=== PATIENT | male | born 1985 | race Caucasian/White ===

== ENCOUNTER 2021-04-07 12:41 | Outpatient (CLI) | payer OTHER ==
--- NOTE | 2021-04-07 13:41 | SLEEP CARE CONSULTATION ---
Information from patient questionnaire entered by Donna Mcgrath. I have reviewed and concur with the information entered by Donna Mcgrath. This document represents the service I personally performed and the decisions made by me, Brooke Hernandez ARNP. History of Present Illness Service Date and Time: 04/07/2021 1241 Reason for Visit: New patient Chief Complaint: reports: Unrefreshed sleep, Snoring, Excessive daytime sleepiness, Observed pauses in breathing, Fatigue, Frequent awakenings at night Date of Onset: 3-5 years Usual bedtime: 2200; midnight on weekends Time it takes to fall asleep: 30-45 minutes Snores at night: Yes Observed to quit breathing while asleep: Yes (by spouse) Sleeps alone due to snoring: No Number of times waking at night: 1-2 Reasons for waking at night: reports: Snoring, Gasping for air, Bathroom, Other (unknown reason, numb limbs, temperature) Toss, Turn, or Twitch while sleeping: Yes Recalls having dreams: Yes Usually gets out of bed at: [id number]; weekends 8-9 Feels refreshed in the morning: No Morning headache: Yes (3-4 times a week, lasts about an hour) Sleepy or fatigued during the day: Yes Ever fallen asleep while driving: No (drowsy driving in the past; no accidents) Takes day naps: Yes (2-3 times a week; 20-30 minutes) Dreams during day naps: Yes Prior sleep studies: No Additional HPI information: I had the pleasure of seeing SONA HARRIS today regarding the possibility of him having a sleep disorder. His current complaints are excessive daytime sleepiness, fatigue, frequent night awakenings, observed pauses in breathing, snoring and unrefreshed sleep. He has times he wakes up frequently for different reasons, including numb limbs. He has woken up gasping for air. He can take up to 45 minutes to fall asleep. He then has difficulty getting back to sleep when he is awakened. He woke up with his face numb once. He has a brother and father who are diagnosed with sleep apnea. He does not have his tonsils, they were taken out when he was 15 years old. He has a history of anxiety and ADD. 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 Patient is and lives in [place]. Have you smoked in the past 12 months: Yes Cigarettes per day (20/pack): 10 Years of smokin Quit date: 07/2020 Smoking Pack Years: 7.5 Alcohol use: Yes Alcohol amount and frequency: 1-3 drinks, 1x per week Caffeine use: Yes Caffeine amount and frequency: 1-2 servings/week Family History Family history of sleep disordered breathing: Yes Family Hx Sleep Apnea: Father: Snoring, Sleep apnea - Treated, Sibling: Snoring, Sleep apnea - Treated Allergies and Home Medications Drug allergies reviewed: Yes (Ibuprofen/Motrin) Home medication list reviewed: Yes Allergy and home medication list: Wellbutrin Multivitamin Review of Systems Weight gain over past 5 years: 10-15 Cardiovascular: reports: leg or foot swelling. denies: high blood pressure Gastrointestinal: reports: heartburn Neurological: reports: headaches Psychiatric: reports: Attention Deficit Hyperactivity, anxiety Ear/Nose/Throat: reports: nasal congestion, sinus problems, tonsillectomy, wisdom teeth removed, other (ear infections) Musculoskeletal: reports: joint pain Immunologic: reports: sneezing, other (clogged ear random) Physical Exam Blood Pressure: 138/86 Cuff size: wrist Heart Rate: 56 O2 Saturation: 98 Height: 5 ft 7 in Weight: 190 lb Body Mass Index: 29.7 BMI Classification: Overweight Neck circumference: 16.6 (inches) Mouth and throat: narrow oropharynx Soft palate: normal Hard palate: normal Uvula: normal Uvula visualization: 100% Mallampati Class I Tongue: enlarged in size with teeth remy on lateral edges Tonsils: absent bilaterally Neck: normal w/o lymphadenopathy or thyromegaly Heart: regular rate and rhythm Lungs: clear bilaterally Impression and Plan 1. Suspected Obstructive Sleep Apnea-Hypopnea Syndrome, as suggested by a history of loud and irregular snoring, observed cessation of breath while asleep, gasping or choking in sleep, morning headache, frequent awakening during the night, unrefreshed sleep, cognitive impairment, and excessive daytime sleepiness. Narrow oropharynx and obesity are common predisposing factors for obstructive sleep apnea-hypopnea syndrome. I recommend proceeding to po lysomnography to confirm the diagnosis and to assess severity. If the patient has significant sleep disordered breathing, a manual CPAP titration study will also be performed to find the optimal treatment pressure. I informed the patient of what the sleep studies involve and after some discussion, obtained agreement to proceed. The pathophysiology of obstructive sleep apnea-hypopnea syndrome was discussed with the patient and health risks of cardiovascular and cerebrovascular disease if not treated. AAS brochure for obstructive sleep apnea-hypopnea syndrome given and reviewed. Risks of drowsy driving discussed in detail and patient advised to avoid long distance driving and to cover assembler at the first sign of drowsiness. Patient agreed to plan. * Schedule polysomnography +- manual CPAP titration study and return in 1-2 weeks after the study to discuss result and initiate therapy. * Avoid long distance driving or driving when feeling sleepy. * Avoid alcohol, sedative and muscle relaxant around bedtime. * Attempt to lose weight. * Review instructions provided by trained office staff on how to prepare for the sleep study. * Return for follow-up after sleep study completed. Counseling Topics: Weight loss health impact Visit Type: In Office Time Spent with Patient (minutes): 30 Provider Statement: I spent 100% of the Face to Face Visit with the patient with greater than 50% spent counseling the patient and coordination of care.
[2021-04-07 13:42] VITALS: BP 138/86
== END 2021-04-07 12:42 | disposition home or self-care (01) ==
LOC: SC 12:41
PROVIDERS: ATTEND Nurse Practitioner Family
DX: R06.83 Snoring (principal); R51.9 Headache, unspecified; G47.8 Other sleep disorders; G47.10 Hypersomnia, unspecified; R06.81 Apnea, not elsewhere classified; R41.89 Other symptoms and signs involving cognitive functions and awareness
CPT/HCPCS: 99203; 99212

== ENCOUNTER 2021-04-22 12:05 | Outpatient (CLI) | payer OTHER | END 2021-04-22 12:06 | disposition home or self-care (01) | LOC: SC 12:05 | PROVIDERS: ATTEND Nurse Practitioner Family | DX: G47.33 Obstructive sleep apnea (adult) (pediatric) (principal); R09.02 Hypoxemia | CPT/HCPCS: 95806 ==

== ENCOUNTER 2021-05-27 09:40 | Outpatient (CLI) | payer OTHER ==
--- NOTE | 2021-05-27 10:19 | SLEEP CARE CONSULTATION ---
Information from patient questionnaire entered by Warren Croft MA. I have reviewed and concur with the information entered by Warren Croft MA. This document represents the service I personally performed and the decisions made by , Brooke Hernandez ARNP. History of Present Illness Service Date and Time: 05/27/2021 0940 Initial [place] Sleepiness Scale score: 18 (in 2020) Current [place] Sleepiness Scale score: 18 (in 2020) Additional HPI information: SONA HARRIS returns for follow up and results of the recently performed home sleep study. I explained the pathophysiology behind obstructive sleep apnea. We then spent quite a bit of time discussing different treatment options. For mild obstructive sleep apnea, surgery and oral appliance are alternatives to nasal CPAP therapy but in moderate or severe cases, nasal CPAP is the most effective and reliable treatment. Because apnea is primarily in supine position, then positional management therapy could be effective. Methods discussed such as positioning with pillows, using a T-shirt with tennis balls in the back, and shown commercial products that have a pillow format on back to prevent supine sleep. I reviewed the impact of weight changes on sleep apnea and strongly recommended losing weight. After some discussion, the patient opted to go with the nasal CPAP therapy. Nasal autoCPAP set at 4-15 cmH20 will be ordered with rationale explained. A manual t itration study will be ordered if unable to find optimal pressure with office adjustments. I explained how CPAP machine works with sample devices Respironics Dreamstation and ResMed [id number] and what to expect when using the machine. Using CPAP every night in order to get used to it was emphasized. Patient advised to put CPAP mask on before getting into bed so as not to fall asleep without CPAP. To assist acclimation to CPAP use, it could also be used for a short time during day while reading or watching TV. The patient was instructed to call the CPAP supplier to discuss any mechanical problem that may occur. If the mask given is uncomfortable or is difficult to keep on through the night even with adjustment, contact the CPAP supplier as many will replace with another mask style if notified before 30 days. If snoring or perceives is not getting enough air or too much air from the machine, notify this office. AAS patient education PAP tips reviewed and given to patient. Patient counseled not drink alcohol less than 4 hours before bedtime as it can increase snoring and apnea. Patient was cautioned about risks of drowsy driving until sleepiness symptoms resolve. Sleep Study - Results Type of Sleep Study: Home sleep study Prior sleep studies: Yes Polysomnography/Home Sleep Study results: Physician Impression: The quality of the study is good. The length of the study is adequate (> 240 minutes). Please also see the tabulated and graphic data. 1. Obstructive Sleep Apnea-Hypopnea (ICD-10 G47.33), mild, with an AHI of 8.3/hr and zuleika SaO2 of 84%. During the study, the patient had 32 apneas (31 obstructive, 1 central, 0 mixed) and 32 hypopneas. The longest episode lasted 109.0 seconds. The patient slept almost exclusively in supine position (supine AHI was 8.8 and non-supine, 3.76). 2. Hypoxemia (ICD-10 R09.02), mild, with the lowest oxygen saturation of 84 % and 1.3 minutes with SaO2 under 90%. Baseline oxygen saturation was normal (Average oxygen saturation was 94%). Allergies and Home Medications Known drug allergies: Yes (Motrin/Ibuprophen) Home medication list reviewed: Yes (no changes) Review of Systems Review of systems same as previous: Yes (no changes) Physical Exam Vital signs obtained and entered by: DEJUAN Gamez Blood Pressure: 138/85 Heart Rate: 94 O2 Saturation: 98 (with mask) Height: 5 ft 7 in Weight: 195 lb (with boots and gear) Body Mass Index: 30.5 BMI Classification: Obese Impression and Plan 1. Obstructive Sleep Apnea-Hypopnea Syndrome, mild, with lowest oxygen saturation of 84%. Obviously this is the cause of the patients symptoms of unrefreshed sleep, and excessive daytime sleepiness. Positive pressure therapy could benefit anxiety and attention deficit. As mentioned above, the patient will be started on nasal autoCPAP therapy with pressure set at 4-15 cmH2O. Compliance guidelines also reviewed. A copy of compliance guidelines will be given for reference at check out. Because the apnea is more severe supine, I instructed to avoid sleeping supine using pillow positioning until able to start CPAP use. 2. Hypoxemia, mild, with the lowest oxygen saturation of 84 % and 1.3 minutes with SaO2 under 90%. His baseline oxygen saturation was normal with an average oxygen saturation of 94%. * Nasal auto CPAP therapy, pressure at 4-15 cm H2O. * Attempt to lose weight. * Avoid alcohol consumption near bedtime. * Avoid supine sleep until using CPAP. * The patient is again cautioned about driving until sleepiness completely resolves. * Return one month after CPAP obtained. I will assess response to therapy and compliance at that time. Counseling Topics: Weight loss health impact Visit Type: In Office Time Spent with Patient (minutes): 20 Provider Statement: I spent 100% of the Face to Face Visit with the patient with greater than 50% spent counseling the patient and coordination of care.
[2021-05-27 10:20] VITALS: BP 138/85
== END 2021-05-27 09:41 | disposition home or self-care (01) ==
LOC: SC 09:40
PROVIDERS: ATTEND Nurse Practitioner Family
DX: G47.33 Obstructive sleep apnea (adult) (pediatric) (principal); R09.02 Hypoxemia; E66.9 Obesity, unspecified; Z68.30 Body mass index [BMI] 30.0-30.9, adult
CPT/HCPCS: 99212; 99213

== ENCOUNTER 2022-03-31 13:47 | Outpatient (CLI) | payer OTHER ==
[2022-03-31 14:19] VITALS: BP 130/78
--- NOTE | 2022-03-31 14:19 | SLEEP CARE CONSULTATION ---
Information from patient questionnaire entered by Elena Veloz. I have reviewed and concur with the information entered by Elena Veloz. This document represents the service I personally performed and the decisions made by , Brooke Hernandez ARNP. History of Present Illness Service Date and Time: 03/31/2022 1347 Previous diagnosis: Mild, Obstructive Sleep Apnea-Hypopnea Syndrome AHI: 8.3 Reason for follow up: one month (ONE MONTH F/U, PRESSURE CHANGE ) Equipment type: CPAP (IBREEZE) Equipment obtained from: Other ([employer]; getting supplies as needed) Mask style: Nasal (over the nose) Backup mask available: Yes (other mask) Last cushion change: not replaced yet Prior sleep studies: Yes Type of Sleep Study: Home sleep study HPI additional information: SONA HARRIS was diagnosed to have mild, AHI 8.3, obstructive sleep apnea-hypopnea syndrome and returned today for CPAP therapy one month follow-up. Sleep Study - Results Type of Sleep Study: Home sleep study Prior sleep studies: Yes CPAP Compliance Data - Data Reviewed with Patient Average duration of nightly device use: 7.1 Compliance rate %: 100 (30/30 days used) Current pressure setting (cmH2O): 5-10 Average residual AHI: 1.3 Subjective Patient concerns: denies: aerophagia, mask discomfort, air blowing in eyes, mask leak noise, condensation in mask/hose, nasal congestion, dry mouth, nose, throat, epistaxis Observed to snore while using device: No Current pressure setting perceived as: comfortable On therapy, patient: reports: sleeping better, awakening more refreshed, being more awake and alert during the day, more rested overall, other (using with naps). denies: drowsiness while driving Initial [place] Sleepiness Scale score: 18 (in 2020) Current [place] Sleepiness Scale score: 14 (03/31/22) Allergies and Home Medications Drug allergies reviewed: Yes (Motrin/ibuprofen) Home medication list reviewed: Yes (no changes) Review of Systems Review of systems same as previous: Yes (no changes) Physical Exam Vital signs obtained and entered by: MARLYN BAEZA Blood Pressure: 130/78 (LEFT ARM ) Cuff size: regular Heart Rate: 63 O2 Saturation: 95 Height: 5 ft 7 in Weight: 202 lb Body Mass Index: 31.6 BMI Classification: Obese Impression and Plan 1. Obstructive Sleep Apnea-Hypopnea Syndrome, mild, with good treatment compliance and good apnea control. On CPAP therapy, the patient has better sleep quality and is more rested overall. We still have not been able to obtain access to his device from his DME, [employer]. What information we were able to get, does show that he is compliant with using his CPAP in the last 30 days. He states that he will use his CPAP during naps as well as at night because it just makes him feel so much better. Patient's apnea severity and rationale for treatment to reduce apnea, improve sleep quality and reduce cardiovascular and cereb rovascular events was reviewed. I also reviewed the benefit of consistent device use of CPAP for anxiety and attention deficit. Patient has significant improvement of his sleep apnea and is satisfied with current CPAP therapy. 2. Obesity, unspecified. Currently patients BMI is 31.6. Obesity increases the risk of apnea, CPAP pressure requirements and overall health risks especially cardiovascular and diabetes. Thus patient is advised to lose weight. * Continue auto CPAP pressure at 5-10 cmH2O * Notify me if snoring with mask or feeling that the pressure is too much or too little * Attempt to lose weight * Call this office if any problems using CPAP * Return for follow up in 6 months, or sooner if concerns arise Counseling Topics: Spare mask, Weight loss health impact Visit Type: In Office Time Spent with Patient (minutes): 14 Provider Statement: I spent 100% of the Face to Face Visit with the patient with greater than 50% spent counseling the patient and coordination of care.
== END 2022-03-31 13:48 | disposition home or self-care (01) ==
LOC: SC 13:47
PROVIDERS: ATTEND Nurse Practitioner Family
DX: G47.33 Obstructive sleep apnea (adult) (pediatric) (principal); E66.9 Obesity, unspecified; Z68.31 Body mass index [BMI] 31.0-31.9, adult
CPT/HCPCS: 99212

== ENCOUNTER 2023-09-13 12:30 | Outpatient (CLI) | payer OTHER ==
[2023-09-13 17:55] LABS: BASOPHILS # (AUTO) 0.1 10^3/uL (0.0-0.1); BASOPHILS % (AUTO) 0.6 %; EOSINOPHILS # (AUTO) 0.3 10^3/uL (0.0-0.7); EOSINOPHILS % (AUTO) 3.6 %; HCT - HEMATOCRIT 43.1 % (42.0-52.0); HGB - HEMOGLOBIN 14.6 g/dL (14.0-18.0); LYMPHOCYTES # (AUTO) 2.2 10^3/uL (1.5-3.5); LYMPHOCYTES % (AUTO) 27.4 %; MEAN CORPUSCULAR HEMOGLOBIN 29.6 pg (27.0-31.0); MEAN CORPUSCULAR HGB CONC 33.9 g/dL (32.0-36.0); MEAN CORPUSCULAR VOLUME 87.2 fL (80.0-94.0); MEAN PLATELET VOLUME 10.1 fL (7.4-11.4); MONOCYTES # (AUTO) 0.4 10^3/uL (0.0-1.0); MONOCYTES % (AUTO) 4.9 %; NEUTROPHILS # (AUTO) 5.1 10^3/uL (1.5-6.6); NEUTROPHILS % (AUTO) 63.1 %; PLT - PLATELET COUNT 265 10^3/uL (130-450); RED BLOOD COUNT 4.94 10^6/uL (4.70-6.10)
[2023-09-13 19:11] LABS: ALBUMIN 4.8 g/dL (3.2-5.5); ALBUMIN/GLOBULIN RATIO 1.8 (1.0-2.2); BILIRUBIN,TOTAL 0.6 mg/dL (0.2-1.0); CREATININE 0.9 mg/dL (0.6-1.3); TOTAL PROTEIN 7.5 g/dL (6.4-8.9)
== END 2023-09-13 12:45 | disposition home or self-care (01) ==
LOC: LAB.N 12:30
PROVIDERS: ATTEND Physician Assistant
DX: R30.9 Painful micturition, unspecified (principal)
CPT/HCPCS: 36415; 80053; 83690; 85025

== ENCOUNTER 2023-09-14 09:43 | Emergency (ER) | payer OTHER ==
[2023-09-14 10:14] VITALS: O2SAT 99
[2023-09-14 10:48] LABS: BILIRUBIN,URINE NEGATIVE (NEGATIVE); GLUCOSE, URINE (UA) NEGATIVE (NEGATIVE); KETONES,URINE (UA) NEGATIVE (NEGATIVE); LEUKOCYTE ESTERASE, URINE NEGATIVE (NEGATIVE); NITRITE,URINE NEGATIVE (NEGATIVE); OCCULT BLOOD,URINE NEGATIVE (NEGATIVE); PH,URINE 6.5 PH (5.0-7.5); PROTEIN,URINE NEGATIVE (NEGATIVE); UROBILINOGEN,URINE 0.2 (NORMAL) E.U./dL (NORMAL)
[2023-09-14 10:51] LABS: CLARITY,URINE CLEAR (CLEAR)
[2023-09-14 10:54] LABS: BASOPHILS # (AUTO) 0.1 10^3/uL (0.0-0.1); BASOPHILS % (AUTO) 0.6 %; EOSINOPHILS # (AUTO) 0.3 10^3/uL (0.0-0.7); HCT - HEMATOCRIT 42.7 % (42.0-52.0); HGB - HEMOGLOBIN 14.6 g/dL (14.0-18.0); LYMPHOCYTES # (AUTO) 2.6 10^3/uL (1.5-3.5); LYMPHOCYTES % (AUTO) 31.5 %; MEAN CORPUSCULAR HEMOGLOBIN 29.3 pg (27.0-31.0); MEAN CORPUSCULAR HGB CONC 34.2 g/dL (32.0-36.0); MEAN CORPUSCULAR VOLUME 85.7 fL (80.0-94.0); MEAN PLATELET VOLUME 9.2 fL (7.4-11.4); MONOCYTES # (AUTO) 0.5 10^3/uL (0.0-1.0); MONOCYTES % (AUTO) 6.3 %; NEUTROPHILS # (AUTO) 4.7 10^3/uL (1.5-6.6); NEUTROPHILS % (AUTO) 57.2 %; PLT - PLATELET COUNT 243 10^3/uL (130-450); RED BLOOD COUNT 4.98 10^6/uL (4.70-6.10); RED CELL DISTRIBUTION WIDTH 12.9 % (12.0-15.0); WHITE BLOOD COUNT 8.2 x10^3/uL (4.8-10.8)
[2023-09-14 11:13] LABS: INFECTIOUS MONONUCLEOSIS NEGATIVE (Negative)
[2023-09-14 11:22] LABS: ALBUMIN 4.8 g/dL (3.2-5.5); ALBUMIN/GLOBULIN RATIO 1.9 (1.0-2.2); BILIRUBIN,TOTAL 0.6 mg/dL (0.2-1.0); CALCIUM 9.9 mg/dL (8.5-10.3); CREATININE 0.7 mg/dL (0.6-1.3); POTASSIUM 3.8 mmol/L (3.5-4.5); TOTAL PROTEIN 7.3 g/dL (6.4-8.9)
[2023-09-14] MEDS: SODIUM CHLORIDE 0.9% 1,000 ML IV STA (11:47)
[2023-09-14] MEDS: PROMETHAZINE INJ 25 MG in SODIUM CHLORIDE 0.9% 50 ML IV STA (11:47)
--- NOTE | 2023-09-14 12:25 | ED Physician Documentation ---
History of Present Illness - Stated complaint Stated Complaint: NECK PX,,REHMAN - Chief complaint Chief Complaint: Neuro - History obtained from History obtained from: Patient, Family - Additonal information Additional information: The pt presents to the ED for CC of headache and neck tightness for the 2 days. He states he has not had a fever, but has had some chills and dysuria. 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 No head injury. He has been in the midst of a work-up for fatty liver, and is concerned about his liver and kidneys. He has had labs before that have shown elevated LFTs. The pt does drink some alcohol, and is mildly overweight. His feels that he has not been [place] adequately [place] for his medical problems, and is wondering why nobody ever ordered a hepatitis panel. She is also worried about meningitis with the head and neck sx. The pt has some mild photophobia, he states. He has had a sore throat. He has had mild nasal congestion recently. is worried about mono. No sick contacts. PD PAST MEDICAL HISTORY - Past Medical History Past Medical History: No Psych: Depression Other Past Medical History: gout - Past Surgical History Past Surgical History: Yes HEENT: Tonsil/Adenoidectomy - Present Medications Home Medications: Ambulatory Orders Medication Instructions Recorded Confirmed Fluconazole [Diflucan] 100 mg PO DAILY #2 tablet 09/14/23 Phenazopyridine HCl [Pyridium] 200 mg PO TID PRN #6 tablet 09/14/23 buPROPion HCl [Wellbutrin Sr] 20 mg PO DAILY 09/14/23 09/14/23 - Allergies Allergies/Adverse Reactions: Allergies Allergy/AdvReac Type Severity Reaction Status Date / Time NSAIDS (Non-Steroidal Allergy Anaphylaxis Verified 09/14/23 10:07 Anti-Inflamma - Social History Does the pt smoke?: No Smoking Status: Never smoker PD ED PE NORMAL - Vitals Vital signs reviewed: Yes - General General: Alert and oriented X 3, No acute distress, Well developed/nourished - HEENT HEENT: Atraumatic, PERRL, EOMI, Moist mucous membranes, Pharynx benign - Neck Neck: Supple, no meningeal sign, No bony TTP, Thyroid normal, Other (The pt can fully flex his neck with chin to chest with no hesitancy or stated discomfort. He has mild ttp of his bilateral lateral neck musculature. Mild posterior cervical LAD R) - Cardiac Cardiac: RRR, No murmur, Strong equal pulses - Respiratory Respiratory: No respiratory distress, Clear bilaterally - Abdomen Abdomen: Soft, Non tender, Non distended, Other (Scratch test reveals normal excursion of liver inferiorly into the abdominal cavity. No palpable enlargement.) - Derm Derm: Warm and dry - Extremities Extremities: No deformity - Neuro Neuro: Alert and oriented X 3 - Psych Psych: Normal mood, Normal affect Results - Vitals Vitals: Oxygen O2 Source Room air - Labs Labs: Laboratory Tests 09/14/23 09/14/23 09/14/23 10:32 10:47 10:47 WBC 8.2 RBC 4.98 Hgb 14.6 Hct 42.7 MCV 85.7 MCH 29.3 MCHC 34.2 RDW 12.9 Plt Count 243 MPV 9.2 Neut # (Auto) 4.7 Lymph # (Auto) 2.6 [place] # (Auto) 0.5 Eos # (Auto) 0.3 Baso # (Auto) 0.1 Absolute Nucleated RBC 0.00 Nucleated RBC % 0.0 Sodium 138 Potassium 3.8 Chloride 105 Carbon Dioxide 27 Anion Gap 6.0 BUN 13 Creatinine 0.7 Estimated GFR (MDRD) 126 Glucose 128 H Calcium 9.9 Total Bilirubin 0.6 AST 58 H ALT 136 H Alkaline Phosphatase 85 Total Protein 7.3 Albumin 4.8 Globulin 2.5 Albumin/Globulin Ratio 1.9 Lipase 19 Urine Color YELLOW Urine Clarity CLEAR Urine pH 6.5 Ur Specific [place] 1.010 Urine Protein NEGATIVE Urine Glucose (UA) NEGATIVE Urine Ketones NEGATIVE Urine Occult Blood NEGATIVE Urine Nitrite NEGATIVE Urine Bilirubin NEGATIVE Urine Urobilinogen 0.2 (NORMAL) Ur Leukocyte Esterase NEGATIVE Ur Microscopic Review NOT INDICATED Urine Culture Comments NOT INDICATED Hepatitis A IgM Ab Hep Bs Antigen Hep B Core IgM Ab Hepatitis C Antibody Hepatitis C Interp Infectious [place] Assay 09/14/23 09/14/23 10:47 10:47 WBC RBC Hgb Hct MCV MCH MCHC RDW Plt Count MPV Neut # (Auto) Lymph # (Auto) [place] # (Auto) Eos # (Auto) Baso # (Auto) Absolute Nucleated RBC Nucleated RBC % Sodium Potassium Chloride Carbon Dioxide Anion Gap BUN Creatinine Estimated GFR (MDRD) Glucose Calcium Total Bilirubin AST ALT Alkaline Phosphatase Total Protein Albumin Globulin Albumin/Globulin Ratio Lipase Urine Color Urine Clarity Urine pH Ur Specific [place] Urine Protein Urine Glucose (UA) Urine Ketones Urine Occult Blood Urine Nitrite Urine Bilirubin Urine Urobilinogen Ur Leukocyte Esterase Ur Microscopic Review Urine Culture Comments Hepatitis A IgM Ab Negative Hep Bs Antigen Negative Hep B Core IgM Ab Negative Hepatitis C Antibody Non Reactive Hepatitis C Interp Comment Infectious [place] Assay NEGATIVE PD Medical Decision Making - ED course Complexity details: reviewed results, re-evaluated patient, considered differential, d/w patient, d/w family ED course: The pt overall looked good, and I d/w pt and that there is no indication of meningitis at this time. He does have an enlarged lymph node at the top of his neck, near a couple of pimples whose tops were shaved off accidentally. I do not find evidence of infection, and have reassured both pt and . Labs, including CBC and ER abd panel, look largely good, with only mild transaminase elevation. The pt's UA is also negative. I have d/w pt and that no yeast has turned up on UA, though I do not feel that the short-term use of fluconazole, as would be indicated for Julianna, poses any threat to the pt's liver. The effects on the liver with this med are mild, rare, and transient, and the pt has only mild liver abnormalities anyway. I have sent a hepatitis panel. [place] is negative. The pt has declined symptomatic management in the ED, and is stable for d/c. Departure - Departure Disposition: 01 Home, Self Care Clinical Impression: Elevated transaminase level, Dysuria, Cervical lymphadenopathy Condition: Stable Instructions: NAFLD, Lymphadenopathy, ED Dysuria Uncertain Cause Prescriptions: Fluconazole [Diflucan] 100 mg PO DAILY #2 tablet Phenazopyridine HCl [Pyridium] 200 mg PO TID PRN #6 tablet PRN Reason: dysuria Comments: Your urinalysis looks good and your monotest is negative. Your liver function tests were mildly elevated today but certainly not anything to raise significant concern for hepatitis or acute liver infection of some other kind. The mild elevations in your liver function tests are consistent with mild fatty liver disease. However, a hepatitis panel has been sent and is pending at this time. This does not come back right away, but you can have your doctor get the results from the hospital. You can also go to our website at [email or web address], click on the "my [facility]" tab and sign up for the patient portal. In this way you can view all of your results. A prescription for Diflucan for potential yeast infection has been electronically transmitted to the [facility] pharmacy in [place], along with a prescription for an antiburning medication for when you urinate. Diflucan is not in the drug category that is considered to be a danger to the liver, unlike some antifungals. There is no expected harm from you taking either this or the Pyridium, the other medication we prescribed, for a short course and if you wish to address the possibility of a yeast infection, you may take this benign medication without too much worry. As far as the neck pain, you have full range of motion of your neck, no fever, no elevation in white blood cell count, and no other findings of concern to raise red flag for possible meningitis. You have a swollen lymph node in the back your neck which is closely associated with the bumps he recently had shaved, and that is most likely the cause of your pain, with the trauma to the "bumps" being the source of the lymph node enlarging. Having said that, there is no evidence of an infection of the Soft tissue surrounding the bumps, and as such, there is no need for antibiotics at this time. Please follow-up with your primary provider as needed to continue to pursue your other concerns. Forms: PCP List Discharge Date/Time: 09/14/23 12:52
[2023-09-14 13:01] VITALS: BP 123/85
[2023-09-16 00:08] LABS: HBsAG SCREEN Negative (Negative); HCV AB Non Reactive (Non Reactive); HEPATITIS B CORE IGM AB Negative (Negative)
== END 2023-09-14 12:52 | disposition home or self-care (01) ==
LOC: ED 09:43
DX: R59.0 Localized enlarged lymph nodes (principal); R30.0 Dysuria; R74.01 Elevation of levels of liver transaminase levels
CPT/HCPCS: 36415; 80053; 80074; 81001; 81003; 83690; 85025; 86308; 87086; 99283; 99284

== ENCOUNTER 2023-10-27 07:00 | Outpatient (CLI) | payer OTHER ==
--- NOTE | 2023-10-27 08:56 | Ultrasound Report ---
PROCEDURE: Abdomen Limited INDICATIONS: ELEVATED LIVER ENZYMES TECHNIQUE: Real-time focused scanning was performed of the abdomen, with image documentation. COMPARISONS: None. FINDINGS: Liver: Liver is normal in size and homogeneous in echotexture. Liver parenchyma is diffusely echogen ic. Main portal vein is patent with hepatopedal flow. Gallbladder: Unremarkable. Biliary ducts: Intrahepatic bile ducts are non-dilated. Extrahepatic bile duct caliber measures 3 m m. Normal is 6-7 mm or less in diameter, or 10 mm or less post-cholecystectomy. Pancreas: Visualized portions of the pancreas are sonographically normal. Of note, the distal body a nd tail are not well seen secondary to bowel gas. Right kidney: Normal in size and echotexture. Right kidney measures 12.3 cm long. No hydronephrosis or nephrolithiasis. No solid masses. No complex renal cystic lesions which require follow-up. IMPRESSION: 1.Liver parenchyma is diffusely echogenic which may be seen in the setting of parenchymal disease suc h as steatosis. 2.Normal gallbladder with no biliary ductal dilatation. Reviewed by: Smooth Kline MD on 10/27/2023 8:54 AM PDT Approved by: Smooth Kline MD on 10/27/2023 8:54 AM PDT Station ID: [id number]
== END 2023-10-27 07:01 | disposition home or self-care (01) ==
LOC: DI 07:00
PROVIDERS: ATTEND Nurse Practitioner Family
DX: R74.01 Elevation of levels of liver transaminase levels (principal)